=== PATIENT | female | born 1985 | race Caucasian/White ===

== ENCOUNTER 2018-10-16 19:20 | Emergency (ER) | payer BC ==
--- NOTE | 2018-10-16 19:41 | EDM.PDOC ---
ED HPI GENERAL MEDICAL PROBLEM - General Chief Complaint: Bite:Animal, Insect Stated Complaint: bites Time Seen by Provider: 10/16/18 19:40 Source of Information: Reports: Patient History Limitations: Reports: Language Barrier - History of Present Illness INITIAL COMMENTS - FREE TEXT/NARRATIVE: Patient is a third B3-year-old who lives in [place] with her states that she woke up this morning with pain in her left thumb and some pain in her right thumb this progressed and she noted a red streak going up her arm that was tender she also has had chills throughout the day Onset: Today Duration: Hour(s):, Getting Worse Location: Reports: Upper Extremity, Left, Upper Extremity, Right Quality: Reports: Ache, Throbbing Severity: Moderate Improves with: Reports: None Worsens with: Reports: Rest Context: Reports: Other (Possible insect bite) Bilateral Hand Pain Score (Numeric/FACES): 6 - Related Data Allergies Allergy/AdvReac Type Severity Reaction Status Date / Time No Known Allergies Allergy Verified 10/16/18 19:24 Home Meds: Home Meds Acetaminophen [Tylenol] 650 mg PO Q4H PRN 10/16/18 [History] Amoxicillin/Potassium Clav [Augmentin 875-125 Tablet] 1 each PO BID 10 Days #14 tablet 10/16/18 [Rx] Omeprazole 20 mg PO DAILY 10/16/18 [History] ED ROS GENERAL - Review of Systems Review Of Systems: See Below Constitutional: Reports: Fever, Chills HEENT: Reports: No Symptoms Respiratory: Reports: Shortness of Breath (Ananth down) Cardiovascular: Reports: No Symptoms Endocrine: Reports: No Symptoms GI/Abdominal: Reports: No Symptoms Musculoskeletal: Reports: Arm Pain (Bilateral arm pain) Skin: Reports: Erythema (Left thumb) Neurological: Reports: No Symptoms Psychiatric: Reports: No Symptoms Hematologic/Lymphatic: Reports: No Symptoms Free Text/Narrative/Comment: Left arm lymphangitis ED EXAM, ANIMAL BITE - Physical Exam Exam: See Below Exam Limited By: Language Barrier General Appearance: Anxious, Mild Distress (Complains of left arm pain and some right arm) Eye Exam: Bilateral Eye: PERRL Ears: Normal External Exam, Normal Canal, Hearing Grossly Normal, Normal TMs Nose: Normal Inspection, Normal Mucosa, No Blood Throat/Mouth: Normal Inspection, Normal Lips, Normal Teeth, Normal Gums, Normal Oropharynx, Normal Voice, No Airway Compromise Head: Atraumatic, Normocephalic Neck: Normal Inspection, Supple, Non-Tender, Full Range of Motion Respiratory/Chest: No Respiratory Distress, Lungs Clear, Normal Breath Sounds, No Accessory Muscle Use, Chest Non-Tender Cardiovascular: Normal Peripheral Pulses, Regular Rate, Rhythm, No Edema, No Gallop, No JVD, No Murmur, No Rub GI/Abdominal: Normal Bowel Sounds, Soft, No Organomegaly, No Distention, No Abnormal Bruit, No Mass, Tender (Hypogastric area). No: Non-Tender (Female) Exam: Normal External Exam, Deferred Rectal (Female) Exam: Deferred Back Exam: Normal Inspection, Full Range of Motion, NT Extremities: Normal Inspection, Normal Range of Motion, Non-Tender, Normal Capillary Refill, No Pedal Edema Neurological: Alert, Oriented, CN II-XII Intact, Normal Cognition, Normal Gait, Normal Reflexes, No Motor/Sensory Deficits Psychiatric: Anxious Skin Exam: Warm/Dry, Tattoo(s), Other (Forearm redness with lymphangitis) Lymphatic: Other (Lymphangitis left arm arm) Course - Vital Signs Last Recorded V/S: Last Vital Signs Temp 98.2 F 10/16/18 19:31 Pulse 66 10/16/18 19:31 Resp 20 10/16/18 19:31 BP 113/67 10/16/18 19:31 Pulse Ox 99 10/16/18 19:31 - Orders/Labs/Meds Orders: Active Orders 24 hr Category Date Time Status CULTURE BLOOD [BC] Stat Lab 10/16/18 19:45 Received CULTURE BLOOD [BC] Stat Lab 10/16/18 19:52 Received Blood Culture x2 Reflex Set [OM.PC] Stat Oth 10/16/18 19:42 Ordered Labs: Laboratory Tests 10/16/18 Range/Units 19:45 WBC 7.8 (4.0-10.2) K/uL RBC 4.12 (3.77-5.09) M/uL Hgb 12.6 (11.7-15.5) g/dL Hct 36.4 (34.0-46.0) % MCV 88.3 (84.0-98.0) fL MCH 30.6 (28.2-33.3) pg MCHC 34.6 (31.7-36.0) g/dL RDW 13.4 (11.2-14.1) % Plt Count 172 (150-350) K/uL Neut % (Auto) 73.8 (45.0-80.0) % Lymph % (Auto) 16.9 (10.0-50.0) % [place] % (Auto) 6.6 (2.0-14.0) % Eos % (Auto) 2.6 (0.0-5.0) % Baso % (Auto) 0.1 (0.0-2.0) % Neut # (Auto) 5.72 (1.40-7.00) K/uL Lymph # (Auto) 1.31 (0.50-3.50) K/uL [place] # (Auto) 0.51 (0.00-1.00) K/uL Eos # (Auto) 0.20 (0.00-0.50) K/uL Baso # (Auto) 0.01 (0.00-0.20) K/uL Departure - Departure Time of Disposition: 20:08 Disposition: Home, Self-Care 01 Condition: Fair Clinical Impression: Lymphangitis Insect bite Qualifiers: Finger: thumb Laterality: left Cellulitis Qualifiers: Site of cellulitis: extremity Site of cellulitis of extremity: finger Laterality: left Qualified Code(s): L03.012 - Cellulitis of left finger - Discharge Information *PRESCRIPTION DRUG MONITORING PROGRAM REVIEWED*: No *COPY OF PRESCRIPTION DRUG MONITORING REPORT IN PATIENT MIRA: No Prescriptions: Amoxicillin/Potassium Clav [Augmentin 875-125 Tablet] 1 each PO BID 10 Days #14 tablet Instructions: Lymphangitis, Adult, Insect Bite, Adult, [id number] Referrals: PCP,None [Primary Care Provider] - Forms: ED Department Discharge Care Plan Goals: Patient started on Augmentin 875 twice a day for 10 days will need to follow-up on Tuesday or if not better. May take ibuprofen for discomfort Call [facility] at [phone] for appointment - My Orders Last 24 Hours: My Active Orders 10/16/18 19:42 Blood Culture x2 Reflex Set [OM.PC] Stat 10/16/18 19:45 CULTURE BLOOD [BC] Stat 10/16/18 19:52 CULTURE BLOOD [BC] Stat - Assessment/Plan Last 24 Hours: My Active Orders 10/16/18 19:42 Blood Culture x2 Reflex Set [OM.PC] Stat 10/16/18 19:45 CULTURE BLOOD [BC] Stat 10/16/18 19:52 CULTURE BLOOD [BC] Stat
== END 2018-10-16 20:25 | disposition home or self-care (01) ==
LOC: LL.ED 19:20
DX: S60.362A Insect bite (nonvenomous) of left thumb, initial encounter (principal); L03.012 Cellulitis of left finger; Z79.899 Other long term (current) drug therapy; W57.XXXA Bitten or stung by nonvenomous insect and other nonvenomous arthropods, initial encounter
CPT/HCPCS: 36415; 85025; 87040; 87077; 99283

== ENCOUNTER 2018-12-19 17:54 | Emergency (ER) | payer BC ==
--- NOTE | 2018-12-19 19:03 | EDM.PDOC ---
ED HPI GENERAL MEDICAL PROBLEM - General Chief Complaint: General Stated Complaint: Finger Swelling Time Seen by Provider: 12/19/18 18:10 Source of Information: Reports: Patient History Limitations: Reports: Language Barrier - History of Present Illness INITIAL COMMENTS - FREE TEXT/NARRATIVE: Patient is a 33-year-old female who is seen with chief complaint of left middle finger swelling patient states that she was bitten by an insect last night's significant swelling of the index finger and pain white count was within normal limits Onset: Today Duration: Hour(s):, Getting Worse Location: Reports: Upper Extremity, Left Quality: Reports: Ache, Throbbing Severity: Moderate Improves with: Reports: None Worsens with: Reports: None Context: Reports: Activity Associated Symptoms: Reports: No Other Symptoms Treatments 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 - Related Data Allergies Allergy/AdvReac Type Severity Reaction Status Date / Time No Known Allergies Allergy Verified 12/19/18 17:59 Home Meds: Home Meds Acetaminophen [Tylenol] 650 mg PO Q4H PRN 10/16/18 [History] Omeprazole 20 mg PO DAILY PRN 10/16/18 [History] Past Medical History - Past Surgical History Female Surgical History: Reports: Tubal Ligation, Other (See Below) Other Female Surgeries/Procedures: blood clot removal from falopian tube Social & Family History - Tobacco Use Smoking Status *Q: Unknown Ever Smoked ED ROS GENERAL - Review of Systems Review Of Systems: See Below Constitutional: Reports: No Symptoms HEENT: Reports: No Symptoms Respiratory: Reports: No Symptoms Cardiovascular: Reports: No Symptoms Endocrine: Reports: No Symptoms GI/Abdominal: Reports: No Symptoms : Reports: No Symptoms Musculoskeletal: Reports: Hand Pain, Joint Swelling Skin: Reports: Dryness, Erythema Neurological: Reports: No Symptoms Psychiatric: Reports: No Symptoms ED EXAM, GENERAL - Physical Exam Exam: See Below Exam Limited By: No Limitations Ears: Normal External Exam, Normal Canal, Hearing Grossly Normal, Normal TMs Ear Exam: Bilateral Ear: Auricle Normal, Canal Normal, TM normal Nose: Normal Inspection, Normal Mucosa, No Blood Throat/Mouth: Normal Inspection, Normal Lips, Normal Teeth, Normal Gums, Normal Oropharynx, Normal Voice, No Airway Compromise Head: Atraumatic, Normocephalic Neck: Normal Inspection, Supple, Non-Tender, Full Range of Motion Respiratory/Chest: No Respiratory Distress, Lungs Clear, Normal Breath Sounds, No Accessory Muscle Use, Chest Non-Tender Cardiovascular: Normal Peripheral Pulses, Regular Rate, Rhythm, No Edema, No Gallop, No JVD, No Murmur, No Rub GI/Abdominal: Normal Bowel Sounds, Soft, Non-Tender, No Organomegaly, No Distention, No Abnormal Bruit, No Mass (Female) Exam: Normal External Exam, Normal Speculum Exam, Normal Bimanual Exam Rectal (Female) Exam: Normal Exam, Normal Rectal Tone Back Exam: Normal Inspection, Full Range of Motion, NT Extremities: Limited Range of Motion, Other (Left middle finger swollen and tender with range of motion) Neurological: Alert, Oriented, CN II-XII Intact, Normal Cognition, Normal Gait, Normal Reflexes, No Motor/Sensory Deficits Psychiatric: Normal Affect Skin Exam: Warm, Dry, Intact, Normal Color, No Rash Course - Vital Signs Last Recorded V/S: Last Vital Signs Temp 97 F 12/19/18 17:54 Pulse 58 L 12/19/18 17:54 Resp 16 12/19/18 17:54 BP 115/63 12/19/18 17:54 Pulse Ox 100 12/19/18 17:54 - Orders/Labs/Meds Orders: Active Orders 24 hr Category Date Time Status Fingers Third Digit Lt F2 [CR] Stat Exams 12/19/18 18:02 Taken Labs: Laboratory Tests 12/19/18 Range/Units 18:09 WBC 5.7 (4.0-10.2) K/uL RBC 4.12 (3.77-5.09) M/uL Hgb 12.2 (11.7-15.5) g/dL Hct 36.3 (34.0-46.0) % MCV 88.1 (84.0-98.0) fL MCH 29.6 (28.2-33.3) pg MCHC 33.6 (31.7-36.0) g/dL RDW 13.2 (11.2-14.1) % Plt Count 159 (150-350) K/uL Neut % (Auto) 58.3 (45.0-80.0) % Lymph % (Auto) 29.9 (10.0-50.0) % [place] % (Auto) 8.0 (2.0-14.0) % Eos % (Auto) 3.4 (0.0-5.0) % Baso % (Auto) 0.4 (0.0-2.0) % Neut # (Auto) 3.30 (1.40-7.00) K/uL Lymph # (Auto) 1.69 (0.50-3.50) K/uL [place] # (Auto) 0.45 (0.00-1.00) K/uL Eos # (Auto) 0.19 (0.00-0.50) K/uL Baso # (Auto) 0.02 (0.00-0.20) K/uL Departure - Departure Time of Disposition: 19:06 Disposition: Home, Self-Care 01 Condition: Fair Clinical Impression: Insect bite Qualifiers: Finger: thumb Laterality: left - Discharge Information *PRESCRIPTION DRUG MONITORING PROGRAM REVIEWED*: No *COPY OF PRESCRIPTION DRUG MONITORING REPORT IN PATIENT MIRA: No Referrals: PCP,None [Primary Care Provider] - Care Plan Goals: Augmentin 875 twice a day for 10 days follow-up with primary if not better may ice the finger - My Orders Last 24 Hours: My Active Orders 12/19/18 18:02 Fingers Third Digit Lt F2 [CR] Stat - Assessment/Plan Last 24 Hours: My Active Orders 12/19/18 18:02 Fingers Third Digit Lt F2 [CR] Stat
== END 2018-12-19 19:19 | disposition home or self-care (01) ==
LOC: LL.ED 17:54
DX: S60.463A Insect bite (nonvenomous) of left middle finger, initial encounter (principal); W57.XXXA Bitten or stung by nonvenomous insect and other nonvenomous arthropods, initial encounter
CPT/HCPCS: 36415; 73140-F2; 85025; 99283-25